=== PATIENT | male | born 1965 | race American Indian/Alaskan Native ===

== ENCOUNTER 2018-10-26 12:26 | Emergency (ER) | payer OTHER ==
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
[2018-10-26] MEDS ORDERED: NORCO 5/325 PO ONE (14:20)
[2018-10-26] MEDS ORDERED: FLEXERIL PO ONE (14:20)
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
[2018-10-26 15:43] VITALS: BP 140/92
== END 2018-10-26 16:02 | disposition home or self-care (01) ==
LOC: ED 12:26
DX: S16.1XXA Strain of muscle, fascia and tendon at neck level, initial encounter (principal); M54.5 Low back pain; I10 Essential (primary) hypertension; E78.00 Pure hypercholesterolemia, unspecified; F17.200 Nicotine dependence, unspecified, uncomplicated; V89.2XXA Person injured in unspecified motor-vehicle accident, traffic, initial encounter; Y93.89 Activity, other specified; Y99.8 Other external cause status; Y92.410 Unspecified street and highway as the place of occurrence of the external cause
CPT/HCPCS: 72040; 72100